=== PATIENT | female | born 1980 | race Caucasian/White ===

== ENCOUNTER 2016-10-20 02:52 | Inpatient (IN) | payer SELFPAY ==
[~2016-10-20] VITALS: Ht 167.6 cm; Wt 78.9 kg
[2016-10-20] MEDS ORDERED: CITRIC ACID/SODIUM CITRATE 30 ML UDC PO ONE (04:00)
[2016-10-20] MEDS ORDERED: CEFAZOLIN 2 GM IVPB PREMIX 50 ML IV ONE (04:00)
[2016-10-20 04:42] LABS: BASOPHILS % (AUTO) 0.2 % (0.0-2.0); EOSINOPHILS # (AUTO) 0.1 K/uL (0.0-0.4); EOSINOPHILS % (AUTO) 0.8 % (0.0-4.0); HEMATOCRIT 33.3 % (36-48); HEMOGLOBIN 11.5 g/dL (12.0-16.0); LYMPHOCYTES # (AUTO) 2.3 K/uL (1.0-5.5); LYMPHOCYTES % (AUTO) 16.8 % (20.5-51.5); MEAN CORPUSCULAR HEMOGLOBIN 32 pg (27-31); MEAN CORPUSCULAR HGB CONC 35 % (32-36); MEAN CORPUSCULAR VOLUME 91 fL (79.0-98.0); MONOCYTES # (AUTO) 0.6 K/uL (0.0-1.0); MONOCYTES % (AUTO) 4.4 % (1.7-9.3); NEUTROPHILS # (AUTO) 10.6 K/uL (1.8-7.7); NEUTROPHILS % (AUTO) 77.8 % (40.0-70.0); PLATELET COUNT (AUTO) 305 K/uL (130-430); RED BLOOD CELL COUNT(AUTO) 3.65 MIL/uL (4.2-6.2); RED CELL DISTRIBUTION WIDTH 13.3 % (9.0-15.0); WHITE BLOOD COUNT (AUTO) 13.6 K/uL (4.8-10.8)
[2016-10-20] MEDS ORDERED: LR 1,000 ML IV SCH (06:05)
[2016-10-20] MEDS ORDERED: ePHEDrine sulfate 50 MG/ML VIAL IVP PRN (06:15)
[2016-10-20] MEDS ORDERED: NALBUPHINE HCL 10 MG/ML AMP IVP PRN (06:15)
[2016-10-20] MEDS ORDERED: NALOXONE HCL 0.4 MG/ML AMP (NARCAN) IVP PRN (06:15)
[2016-10-20] MEDS ORDERED: MEPERIDINE HCL/PF 25 MG/ML DISP.SYRIN IVP PRN ×2 (06:15)
[2016-10-20] MEDS ORDERED: HYDROmorphone 2 MG/ML VIAL IVP PRN ×2 (06:15)
[2016-10-20] MEDS ORDERED: MORPHINE SULFATE 10MG/10ML PF AMP SP SCH (06:15)
[2016-10-20] MEDS ORDERED: ONDANSETRON HCL 4 MG/2 ML VIAL IVP PRN ×2 (06:15)
[2016-10-20] MEDS ORDERED: HYDROmorphone 1 MG INJ. 1 MG/ML AMPUL IVP PRN ×2 (06:15)
[2016-10-20] MEDS ORDERED: DIPHENHYDRAMINE INJ 50 MG/ML VIAL IVP PRN (06:15)
[2016-10-20] MEDS ORDERED: KETOROLAC TROMETHAMINE 30 MG VIAL IVP PRN ×2 (06:15)
[2016-10-20] MEDS ORDERED: OXYTOCIN/NORMAL SALINE 1,000 ML IV ONE (06:38)
[2016-10-20 06:40] VITALS: BP_SYST 111
[2016-10-20] MEDS ORDERED: DOCUSATE SODIUM 100 MG CAPSULE PO PRN (06:45)
[2016-10-20] MEDS ORDERED: LANOLIN 7 GM OINT. TP PRN (06:45)
[2016-10-20] MEDS ORDERED: ANUSOL 1 EA SUPP.RECT (PREPARATION H) RC PRN (06:45)
[2016-10-20] MEDS ORDERED: BISACODYL 10 MG/SUPPOSITORY RC PRN (06:45)
[2016-10-20] MEDS ORDERED: MEASLES,MUMPS&RUBELLA VACC/PF 12500 UNIT/0.5 ML VIAL SUBQ PRN (06:45)
[2016-10-20] MEDS ORDERED: SIMETHICONE 80 MG TAB.CHEW PO PRN (06:45)
[2016-10-20] MEDS ORDERED: SENNOSIDES/DOCUSATE SODIUM 1 TAB TABLET(SENOKOT-S) PO PRN (06:45)
[2016-10-20] MEDS ORDERED: HYDROcodone/ACETAMIN 5-325 MG TAB (NORCO/ VICODIN) PO PRN ×2 (06:45)
[2016-10-20] MEDS ORDERED: TEMAZEPAM 15 MG CAPSULE PO PRN (06:45)
[2016-10-20] MEDS ORDERED: ACETAMINOPHEN 325 MG TABLET PO PRN (06:45)
[2016-10-20] MEDS ORDERED: RHO(D) IMMUNE GLOBULIN/MALTOSE 1500 UNITS/1.3 ML (WINHRO) IM PRN (06:45)
[2016-10-20] MEDS: IBUPROFEN 600 MG TABLET PO SCH ×3 (12:00→23:59)
[2016-10-20] MEDS: LR 1,000 ML IV SCH (19:46)
[2016-10-21] MEDS: LR 1,000 ML IV SCH (01:20)
[2016-10-21] MEDS: IBUPROFEN 600 MG TABLET PO SCH ×3 (05:54→18:29)
[2016-10-21 07:28] LABS: BASOPHILS % (AUTO) 0.3 % (0.0-2.0); EOSINOPHILS # (AUTO) 0.1 K/uL (0.0-0.4); EOSINOPHILS % (AUTO) 1.3 % (0.0-4.0); HEMATOCRIT 32.4 % (36-48); HEMOGLOBIN 10.6 g/dL (12.0-16.0); LYMPHOCYTES # (AUTO) 1.9 K/uL (1.0-5.5); MEAN CORPUSCULAR HEMOGLOBIN 31 pg (27-31); MEAN CORPUSCULAR HGB CONC 33 % (32-36); MONOCYTES # (AUTO) 0.6 K/uL (0.0-1.0); MONOCYTES % (AUTO) 5.9 % (1.7-9.3); NEUTROPHILS % (AUTO) 74.5 % (40.0-70.0); PLATELET COUNT (AUTO) 242 K/uL (130-430); RED BLOOD CELL COUNT(AUTO) 3.48 MIL/uL (4.2-6.2); RED CELL DISTRIBUTION WIDTH 13.2 % (9.0-15.0); WHITE BLOOD COUNT (AUTO) 10.6 K/uL (4.8-10.8)
[2016-10-21 07:39] LABS: MEAN CORPUSCULAR VOLUME 93 fL (79.0-98.0)
[2016-10-22] MEDS: IBUPROFEN 600 MG TABLET PO SCH ×5 (00:02→23:55)
[2016-10-23] MEDS: IBUPROFEN 600 MG TABLET PO SCH ×2 (06:49→11:52)
[2016-10-23] MEDS ORDERED: DIPH-TET-PERTUS Vaccine 0.5 ML VIAL/Tdap (ADACEL) I.M. PRN (14:45)
== END 2016-10-23 16:15 | disposition home or self-care (01) | DRG 766 ==
LOC: OBSVTOIN 02:52 → SPU 02:52
PROVIDERS: ADMIT Obstetrics & Gynecology; ATTEND Obstetrics & Gynecology
PROC: 10D00Z1 Extraction of Products of Conception, Low, Open Approach (ICD-10-PCS; principal; 2016-10-20 05:30)
DX: O34.211 Maternal care for low transverse scar from previous cesarean delivery (principal); O77.0 Labor and delivery complicated by meconium in amniotic fluid; O09.523 Supervision of elderly multigravida, third trimester; Z37.0 Single live birth; Z3A.39 39 weeks gestation of pregnancy
CPT/HCPCS: 36415; 85025; 86592; 86886; 86900; 86901; 94760; J0690; J2405; J2590; J7120